=== PATIENT | female | born 1955 | race African-American/Black ===

== ENCOUNTER 2018-12-31 17:44 | Inpatient (IN) ==
[2018-12-31 18:26] LABS: Basophils % 0.6 % (0.0-0.8); Eosinophils # 0.1 10*3/uL (0.0-0.87); Eosinophils % 2.1 % (0.00-10.9); Hematocrit 35.7 VOL% (35.7-47.0); Hemoglobin 11.7 GM/DL (12.0-16.0); Immature Granulocytes % 0.2 %; Immature Granulocytes Absolute 0.01 #; Lymphocytes # 1.4 10*3/uL (1.4-4.0); Lymphocytes % 26.6 % (21.3-54.2); Mean Corpuscular HGB Conc 32.8 GM/DL (32-36); Mean Corpuscular Volume 95.7 FL (87-102); Mean Platelet Volume 12.3 FL (9.6-12.0); Monocytes % 15.8 % (1.7-12.7); Neutrophils % 54.7 % (38.7-73.9); Platelet Count 141 T/CUMM (130-400); Red Blood Count 3.73 MC/CUMM (3.8-5.5); Red Cell Distribution Width 15.9 % (9.3-17.3); White Blood Count 5.2 T/CUMM (4-12)
[2018-12-31 18:44] LABS: Bilirubin,Total 4.9 MG/DL (0.2-1.0); Calcium 8.6 MG/DL (8.5-10.1); Total Protein 8.8 G/DL (6.4-8.3)
[2018-12-31 19:13] LABS: Eosinophils 4 % (0-10); Lymphocytes 18 % (20-55); Segmented Neutrophils 64 % (50-85)
[2018-12-31 19:14] LABS: Platelet Estimate Adequate; Total Cells Counted 100
[2018-12-31] MEDS ORDERED: NICOTINE 21 MG/24 HR PATCH TRANSDERM PRN (21:38)
[2018-12-31] MEDS ORDERED: BISACODYL 5 MG TABLET PO PRN (21:38)
[2018-12-31] MEDS ORDERED: diphenhydrAMINE CAP 25 MG CAPSULE PO PRN (21:38)
[2018-12-31] MEDS ORDERED: ONDANSETRON 4 MG/2 ML VIAL IV PRN (21:38)
[2018-12-31] MEDS ORDERED: SODIUM CHLORIDE 0.9% 500 ML IV STA (21:45)
[2018-12-31 22:09] LABS: INR 1.1; PT Patient Result 11.4 SECS (9.6-12.2)
[2018-12-31 22:25] LABS: Troponin I < 0.015 NG/ML (0.00-0.045)
[2018-12-31] MEDS: SODIUM CHLORIDE 0.9% 1,000 ML IV SCH (22:35)
[2018-12-31 22:42] LABS: Albumin 2.9 G/DL (3.4-5.0); Bilirubin,Direct 3.91 MG/DL (0.0-0.20); Bilirubin,Indirect 0.8 MG/DL (0.0-1.0); Bilirubin,Total 4.7 MG/DL (0.2-1.0); Total Protein 8.8 G/DL (6.4-8.3)
[2018-12-31 22:43] LABS: Risk Ratio 8.9; Thyroid Stimulating Hormone 1.14 uIU/ml (0.358-3.74)
[2018-12-31 23:13] LABS: Amorphous Crystals,Urine Few /HPF (Few); Apearance,Urine CLOUDY (Clear); Bilirubin,Urine Negative (Negative); Blood, Urine Moderate mg/dL (Negative); Glucose,Urine (UA) Negative (Negative); Ketones,Urine Negative (Negative); Mucus,Urine Occasional /LPF (Occasional); Nitrite,Urine Negative (Negative); Protein,Urine 100 MG/DL; RBC,Urine 7 /HPF (0-4); Squamous Epithelial Cell,Urine Occasional /HPF (0-10); Urine Color Amber (Yellow); Urine Specific Gravity 1.014 (1.001-1.035); WBC,Urine 13 /HPF (0-6)
[2018-12-31 23:15] LABS: Hepatitis B Core IgM Quant 0.11 Index; Hepatitis B Surface Ag Quant < 0.10 Index; Hepatitis B Surface Ag Result Negative (Negative); Hepatitis C Virus Ab Quant 0.04 Index; Hepatitis C Virus Ab Result Negative (Negative)
[2018-12-31 23:24] LABS: HIV Antigen/Antibody Result Nonreactive (Nonreactive)
[2018-12-31 23:36] LABS: Barbiturates Screen,Urine Negative (Negative); Benzodiazepines Screen,Urine Negative (Negative); Cannabinoid Screen,Urine Negative (Negative); Opiate Screen,Urine Negative (Negative); Phencyclidine Screen,Urine Negative (Negative)
[2019-01-01 04:38] LABS: Basophils % 0.7 % (0.0-0.8); Eosinophils # 0.1 10*3/uL (0.0-0.87); Eosinophils % 2.6 % (0.00-10.9); Hematocrit 35.9 VOL% (35.7-47.0); Hemoglobin 11.8 GM/DL (12.0-16.0); Immature Granulocytes % 1.3 %; Immature Granulocytes Absolute 0.07 #; Lymphocytes # 1.6 10*3/uL (1.4-4.0); Lymphocytes % 29.6 % (21.3-54.2); Mean Corpuscular HGB Conc 32.9 GM/DL (32-36); Mean Corpuscular Volume 95.7 FL (87-102); Mean Platelet Volume 12.5 FL (9.6-12.0); Monocytes % 16.2 % (1.7-12.7); Neutrophils % 49.6 % (38.7-73.9); Platelet Count 123 T/CUMM (130-400); Red Blood Count 3.75 MC/CUMM (3.8-5.5); White Blood Count 5.4 T/CUMM (4-12)
[2019-01-01 05:04] LABS: Eosinophils 2 % (0-10); Hypochromasia 1+; Lymphocytes 26 % (20-55); Platelet Estimate Normal; Segmented Neutrophils 58 % (50-85); Total Cells Counted 100
[2019-01-01 05:17] LABS: Albumin 2.8 G/DL (3.4-5.0); Bilirubin,Total 4.7 MG/DL (0.2-1.0); Calcium 8.1 MG/DL (8.5-10.1); Osmolality,Calculated 291.5 MOS/KG (273-304); Total Protein 8.1 G/DL (6.4-8.3)
[2019-01-01] MEDS: SODIUM CHLORIDE 0.9% 1,000 ML IV SCH ×2 (14:08→14:24)
[2019-01-01] MEDS: SODIUM BICARB INJ 50 MEQ in DEXTROSE 5% NACL 0.45% 1,000 ML IV SCH (17:59)
[2019-01-01] MEDS: HEPARIN 5,000 UNIT/1 ML VIAL SUBCUT SCH (18:00)
[2019-01-02] MEDS: HEPARIN 5,000 UNIT/1 ML VIAL SUBCUT SCH ×3 (02:29→18:08)
[2019-01-02] MEDS: SODIUM BICARB INJ 50 MEQ in DEXTROSE 5% NACL 0.45% 1,000 ML IV SCH ×2 (03:56→14:31)
[2019-01-02 05:07] LABS: Calcium 7.4 MG/DL (8.5-10.1); Osmolality,Calculated 290.4 MOS/KG (273-304)
[2019-01-02 05:13] LABS: Albumin 2.6 G/DL (3.4-5.0); Bilirubin,Direct 3.44 MG/DL (0.0-0.20); Bilirubin,Indirect 1.7 MG/DL (0.0-1.0); Bilirubin,Total 5.1 MG/DL (0.2-1.0); Total Protein 7.5 G/DL (6.4-8.3)
[2019-01-03] MEDS: HEPARIN 5,000 UNIT/1 ML VIAL SUBCUT SCH ×3 (00:51→17:47)
[2019-01-03] MEDS: SODIUM BICARB INJ 50 MEQ in DEXTROSE 5% NACL 0.45% 1,000 ML IV SCH ×3 (00:52→20:26)
[2019-01-03 05:25] LABS: Calcium 7.2 MG/DL (8.5-10.1); Osmolality,Calculated 287.3 MOS/KG (273-304)
[2019-01-03 05:29] LABS: Albumin 2.5 G/DL (3.4-5.0); Bilirubin,Direct 4.09 MG/DL (0.0-0.20); Bilirubin,Indirect 1.2 MG/DL (0.0-1.0); Bilirubin,Total 5.3 MG/DL (0.2-1.0); Total Protein 7.4 G/DL (6.4-8.3)
[2019-01-04] MEDS: HEPARIN 5,000 UNIT/1 ML VIAL SUBCUT SCH ×3 (04:02→17:02)
[2019-01-04] MEDS: SODIUM BICARB INJ 50 MEQ in DEXTROSE 5% NACL 0.45% 1,000 ML IV SCH ×2 (05:20→14:49)
[2019-01-04] MEDS ORDERED: PHENOL 1.4% THROAT SPRAY 177 ML BOTTLE PO PRN (19:13)
[2019-01-05] MEDS: HEPARIN 5,000 UNIT/1 ML VIAL SUBCUT SCH ×3 (01:19→17:23)
[2019-01-05] MEDS: SODIUM BICARB INJ 50 MEQ in DEXTROSE 5% NACL 0.45% 1,000 ML IV SCH ×2 (01:24→18:08)
[2019-01-05 10:03] LABS: Albumin 2.4 G/DL (3.4-5.0); Bilirubin,Total 6.7 MG/DL (0.2-1.0); Calcium 7.5 MG/DL (8.5-10.1); Total Protein 7.9 G/DL (6.4-8.3)
[2019-01-05 11:39] LABS: Double Stranded DNA Antibodies > 200.0 IU/ML
[2019-01-05 11:42] LABS: Anti-Nuclear Antibody Pattern HOMOGENEOUS
[2019-01-05 12:00] LABS: Anti SS-A Antibodies < 16 EU/ML
[2019-01-05 12:07] LABS: Anti-Nuclear Antibody Pattern HOMOGENEOUS
[2019-01-05] MEDS: MORPHINE 4 MG/1 ML VIAL IV PRN (17:20)
[2019-01-06] MEDS: SODIUM BICARB INJ 50 MEQ in DEXTROSE 5% NACL 0.45% 1,000 ML IV SCH ×2 (00:18→18:38)
[2019-01-06] MEDS: MORPHINE 4 MG/1 ML VIAL IV PRN ×2 (00:21→22:20)
[2019-01-06] MEDS: HEPARIN 5,000 UNIT/1 ML VIAL SUBCUT SCH ×3 (01:48→18:38)
[2019-01-06] MEDS ORDERED: DIAZEPAM 5 MG TABLET PO ONE (09:02)
[2019-01-06 09:28] LABS: Albumin 2.3 G/DL (3.4-5.0); Bilirubin,Direct 4.53 MG/DL (0.0-0.20); Bilirubin,Indirect 1.1 MG/DL (0.0-1.0); Bilirubin,Total 5.6 MG/DL (0.2-1.0); Total Protein 7.5 G/DL (6.4-8.3)
[2019-01-06] MEDS ORDERED: SODIUM CHLORIDE 0.45% 1,000 ML IV SCH (09:30)
[2019-01-07] MEDS: HEPARIN 5,000 UNIT/1 ML VIAL SUBCUT SCH ×3 (02:23→16:44)
[2019-01-07 02:35] LABS: Basophils % 0.4 % (0.0-0.8); Eosinophils # 0.2 10*3/uL (0.0-0.87); Eosinophils % 2.2 % (0.00-10.9); Hematocrit 30.8 VOL% (35.7-47.0); Hemoglobin 9.7 GM/DL (12.0-16.0); Immature Granulocytes % 0.3 %; Immature Granulocytes Absolute 0.02 #; Lymphocytes # 1.6 10*3/uL (1.4-4.0); Lymphocytes % 22.9 % (21.3-54.2); Mean Corpuscular HGB Conc 31.5 GM/DL (32-36); Mean Corpuscular Volume 96.6 FL (87-102); Mean Platelet Volume 12.6 FL (9.6-12.0); Monocytes % 15.7 % (1.7-12.7); Neutrophils % 58.5 % (38.7-73.9); Platelet Count 158 T/CUMM (130-400); Red Blood Count 3.19 MC/CUMM (3.8-5.5); Red Cell Distribution Width 17.7 % (9.3-17.3); White Blood Count 6.9 T/CUMM (4-12)
[2019-01-07 02:57] LABS: Albumin 2.2 G/DL (3.4-5.0); Bilirubin,Direct 3.94 MG/DL (0.0-0.20); Bilirubin,Indirect 1.6 MG/DL (0.0-1.0); Bilirubin,Total 5.5 MG/DL (0.2-1.0); Total Protein 7.5 G/DL (6.4-8.3)
[2019-01-07 03:26] LABS: Anisocytosis 1+; Band Neutrophils 2 % (0-10); Eosinophils 5 % (0-10); Hypochromasia 1+; Lymphocytes 25 % (20-55); Macrocytosis 1+; Nucleated Red Blood Cells 1 (0-5); Ovalocytes Few; Platelet Estimate Adequate; Segmented Neutrophils 55 % (50-85); Target Cells 2+; Total Cells Counted 100
[2019-01-07] MEDS: SODIUM BICARB INJ 50 MEQ in DEXTROSE 5% NACL 0.45% 1,000 ML IV SCH ×2 (04:42→17:59)
[2019-01-07] MEDS: MORPHINE 4 MG/1 ML VIAL IV PRN ×2 (05:29→23:55)
[2019-01-07] MEDS ORDERED: SODIUM CHLORIDE 0.45% 1,000 ML IV SCH (11:00)
[2019-01-07 14:18] LABS: Mitochondrial Antibody (M2) <0.1 U
[2019-01-08] MEDS: HEPARIN 5,000 UNIT/1 ML VIAL SUBCUT SCH ×2 (02:03→08:52)
[2019-01-08 06:22] LABS: Calcium 8.2 MG/DL (8.5-10.1); Osmolality,Calculated 284.8 MOS/KG (273-304)
[2019-01-08 08:59] LABS: Albumin 2.3 G/DL (3.4-5.0); Bilirubin,Direct 3.56 MG/DL (0.0-0.20); Bilirubin,Indirect 1.2 MG/DL (0.0-1.0); Bilirubin,Total 4.8 MG/DL (0.2-1.0); Total Protein 8.2 G/DL (6.4-8.3)
[2019-01-08 12:47] LABS: Smooth Muscle Antibody Negative (Negative)
[2019-01-08 13:56] VITALS: BP 132/83
[2019-01-10 15:01] LABS: Myeloperoxidase Antibody < 0.2 U
[2019-01-12 23:36] LABS: Reviewed By SEE COMMENTS; TPMT Phenotype Normal metabolizer
== END 2019-01-08 16:15 | disposition home or self-care (01) | DRG 441 ==
LOC: N.ED 17:44 → N.EDINP 21:39 → SUATTDRO 21:39 → N.4E 23:17
PROVIDERS: ADMIT Internal Medicine; ATTEND Internal Medicine

== ENCOUNTER 2020-12-13 15:06 | Observation (INO) ==
[2020-12-13 15:59] LABS: Basophils % 0.3 % (0.0-0.8); Eosinophils # 0.1 10*3/uL (0.0-0.87); Eosinophils % 0.6 % (0.00-10.9); Hematocrit 44.4 VOL% (35.7-47.0); Hemoglobin 14.5 GM/DL (12.0-16.0); Immature Granulocytes % 0.3 %; Immature Granulocytes Absolute 0.02 #; Lymphocytes # 1.2 10*3/uL (1.4-4.0); Lymphocytes % 15.7 % (21.3-54.2); Mean Corpuscular HGB Conc 32.7 GM/DL (32-36); Mean Corpuscular Volume 101.1 FL (87-102); Mean Platelet Volume 11.5 FL (9.6-12.0); Monocytes % 4.8 % (1.7-12.7); NRBC # 0.02 10*3/uL; Neutrophils % 78.3 % (38.7-73.9); Platelet Count 176 T/CUMM (130-400); Red Blood Count 4.39 MC/CUMM (3.8-5.5); White Blood Count 7.7 T/CUMM (4-12)
[2020-12-13 16:14] LABS: Calcium 9.4 MG/DL (8.5-10.1); Osmolality,Calculated 280.7 MOS/KG (273-304); Potassium 4.3 MMOL/L (3.5-5.1)
[2020-12-13 16:55] LABS: Anisocytosis 1+; Macrocytosis 1+; Platelet Estimate Normal
[2020-12-13] MEDS ORDERED: FUROSEMIDE 20 MG/2 ML VIAL IV STA (21:30)
[2020-12-13] MEDS ORDERED: FUROSEMIDE 40 MG/4 ML VIAL IV STA (21:31)
[2020-12-13 22:12] LABS: Alanine Aminotransferase 31 U/L (13-56); Albumin 4.1 G/DL (3.4-5.0); Alkaline Phosphatase 54 U/L (45-117); Aspartate Amino Transferase 22 U/L (0-37); Bilirubin,Direct < 0.100 MG/DL (0.0-0.20); Bilirubin,Indirect 0.3 MG/DL (0.0-1.0); Total Protein 8.3 G/DL (6.4-8.2)
[2020-12-13] MEDS ORDERED: GLUCAGON 1 MG VIAL IM PRN (23:07)
[2020-12-13] MEDS ORDERED: DEXTROSE 50% 25 GM/50 ML VIAL IV PRN (23:07)
[2020-12-13] MEDS ORDERED: ACETAMINOPHEN 325 MG TABLET PO PRN (23:07)
[2020-12-13] MEDS ORDERED: hydrALAZINE 20 MG/1 ML VIAL IV PRN (23:07)
[2020-12-13] MEDS ORDERED: ONDANSETRON 4 MG/2 ML VIAL IV PRN (23:07)
[2020-12-13] MEDS ORDERED: POTASSIUM CHLORIDE 20 MEQ TABLET PO PRN (23:37)
[2020-12-14] MEDS: ENOXAPARIN 120 MG/0.8 ML SYRINGE SUBCUT SCH ×2 (00:45→23:03)
[2020-12-14 02:50] LABS: Basophils % 0.4 % (0.0-0.8); Eosinophils # 0.1 10*3/uL (0.0-0.87); Eosinophils % 0.5 % (0.00-10.9); Hematocrit 45.6 VOL% (35.7-47.0); Hemoglobin 14.6 GM/DL (12.0-16.0); Immature Granulocytes % 0.3 %; Immature Granulocytes Absolute 0.03 #; Lymphocytes # 4.2 10*3/uL (1.4-4.0); Mean Corpuscular Volume 103.6 FL (87-102); Mean Platelet Volume 11.3 FL (9.6-12.0); Monocytes % 6.3 % (1.7-12.7); Neutrophils % 53.5 % (38.7-73.9); Platelet Count 210 T/CUMM (130-400); White Blood Count 10.8 T/CUMM (4-12)
[2020-12-14 03:21] LABS: Calcium 9.5 MG/DL (8.5-10.1); Osmolality,Calculated 280.7 MOS/KG (273-304); Potassium 4.2 MMOL/L (3.5-5.1)
[2020-12-14] MEDS ORDERED: MAGNESIUM SULF RIDER 2 GM/50 ML PREMIX IV ONE (07:42)
[2020-12-14] MEDS ORDERED: ENOXAPARIN 40 MG/0.4 ML SYRINGE SUBCUT SCH (09:00)
[2020-12-14] MEDS: PANTOPRAZOLE 40 MG TABLET PO SCH (09:55)
[2020-12-14] MEDS: FUROSEMIDE 40 MG/4 ML VIAL IV SCH ×2 (09:56→16:06)
[2020-12-15 05:17] LABS: Basophils # 0.1 10*3/uL (0.0-0.2); Basophils % 0.6 % (0.0-0.8); Eosinophils # 0.1 10*3/uL (0.0-0.87); Eosinophils % 0.9 % (0.00-10.9); Hematocrit 44.4 VOL% (35.7-47.0); Hemoglobin 14.6 GM/DL (12.0-16.0); Immature Granulocytes % 0.1 %; Immature Granulocytes Absolute 0.01 #; Lymphocytes # 4.5 10*3/uL (1.4-4.0); Mean Corpuscular HGB Conc 32.9 GM/DL (32-36); Mean Corpuscular Volume 101.1 FL (87-102); Monocytes % 7.7 % (1.7-12.7); NRBC # 0.02 10*3/uL; Neutrophils % 38.7 % (38.7-73.9); Platelet Count 220 T/CUMM (130-400); Red Blood Count 4.39 MC/CUMM (3.8-5.5); Red Cell Distribution Width 13.8 % (9.3-17.3); White Blood Count 8.7 T/CUMM (4-12)
[2020-12-15 05:40] LABS: Calcium 8.8 MG/DL (8.5-10.1); Osmolality,Calculated 286.4 MOS/KG (273-304); Potassium 3.6 MMOL/L (3.5-5.1)
[2020-12-15 05:44] LABS: Eosinophils 1 % (0-10); Lymphocytes 51 % (20-55); Platelet Estimate Adequate; Segmented Neutrophils 41 % (50-85); Total Cells Counted 100
[2020-12-15] MEDS ORDERED: carvediloL 25 MG TABLET PO SCH (09:13)
[2020-12-15] MEDS: FUROSEMIDE 40 MG/4 ML VIAL IV SCH ×2 (09:31→12:37)
[2020-12-15] MEDS: PANTOPRAZOLE 40 MG TABLET PO SCH (09:31)
[2020-12-15 12:35] VITALS: BP 122/62
== END 2020-12-15 12:38 | disposition home or self-care (01) ==
LOC: N.ED 15:06 → N.EDINP 15:06 → N.TELEN 12-14 00:22
PROVIDERS: ADMIT Internal Medicine; ATTEND Internal Medicine